=== PATIENT | female | born 1935 | race Caucasian/White ===

== ENCOUNTER 2018-03-16 10:00 | Emergency (ER) | payer MEDICARE, BC ==
--- NOTE | 2018-03-16 10:27 | UC ---
Skin Complaint HPI - HPI Summary HPI Summary: This is ginny Young Zhou documenting for attending Odell Kelley MD. This patient is a 82 year old F presenting to [facility] with a chief complaint of a facial rash that began yesterday. [facility]18 she felt like something was in her eye, this is when the sx began. She reports eye discharge and swelling. She is concerned this is shingles. She did have chicken pox as a child. The patient rates the pain 8/10 in severity. - History of Current Complaint Chief Complaint: UCRash Time Seen by Provider: 03/16/18 10:19 Stated Complaint: RASH Hx Obtained From: Patient Onset/Duration: Lasting Days, Still Present Timing: Constant Onset Severity: Severe Current Severity: Severe Pain Intensity: 8 Pain Scale Used: 0-10 Numeric Location: Face Character: Pain, Redness Associated Signs & Symptoms: Positive: Negative - fever - Allergy/Home Medications Allergies/Adverse Reactions: Allergies Allergy/AdvReac Type Severity Reaction Status Date / Time amlodipine [From [facility]] Allergy Hives Verified 03/16/18 10:23 Penicillins Allergy Hives Verified 03/16/18 10:22 Home Medications: Home Medications Aspirin [Aspirin Childrens 81 MG] 162 mg PO DAILY 03/16/18 [History Confirmed ] Atenolol TAB* [Tenormin TAB* 50 MG] 50 mg PO DAILY 03/16/18 [History Confirmed 03/16/18] Hydrochlorothiazide TAB* [Hydrodiuril TAB*] 50 mg PO DAILY 03/16/18 [History Confirmed 03/16/18] diphenhydrAMINE HCl [Benadryl Allergy 25 MG CAP] 25 mg PO DAILY PRN 03/16/18 [ History Confirmed 03/16/18] Review of Systems Constitutional: Negative - fever Skin: Rash Eyes: Drainage - and swelling All Other Systems Reviewed And Are Negative: Yes PMH/Surg Hx/FS Hx/Imm Hx Cardiovascular History: Hypertension Other History Of: Negative For: Anticoagulant Therapy - Surgical History Surgical History: None - Family History Known Family History: Positive: Hypertension - Social History Alcohol Use: None Substance Use Type: None Smoking Status (MU): Never Smoked Tobacco Physical Exam - Summary Physical Exam Summary: General: well-appearing, no pain distress Skin: There are erythematous papules, no vesicle, on the left side on the forehead surround left eye, there is a sclera injection Head: normal Eyes: EOMI, GUILLE ENT: normal Neck: supple, nontender Respiratory: CTA, breath sounds present Cardiovascular: RRR Abdomen: soft, nontender Bowel: present Musculoskeletal: normal, strength/ROM intact Neurological: sensory/motor intact, A&O x3 Psychological: affect/mood appropriate Triage Information Reviewed: Yes Vital Signs: Initial Vital Signs Temp 98 F 03/16/18 10:20 Pulse 62 03/16/18 10:20 Resp 16 03/16/18 10:20 BP 189/89 03/16/18 10:20 Pulse Ox 99 03/16/18 10:20 Vital Signs Reviewed: Yes Course/Dx - Course Course Of Treatment: BP noted and advised to follow up with PCP. RX VALACYCLOVIR. ARRANGED AN OPHTHALMOLOGY APPOINT FOR THE PATIENT TODAY AT 4:30PM , [place]ARRO[place] [facility] [place] - Diagnoses Provider Diagnoses: FACIAL SHINGLES. HTN - Physician Notification/Consults Discussed Patient Care With: Chris Santacruz Time Discussed With Above Provider: 10:34 Instructed by Provider To: Other - Dr. Santacruz states that he will see the patient at 16:[address] Carroll will be the one seeing the patient. Discharge - Sign-Out/Discharge Documenting (check all that apply): Patient Departure - Discharge Plan Condition: Stable Disposition: HOME Prescriptions: Valacyclovir HCl [Valacyclovir] 1 gm PO TID #21 tab Patient Education Materials: Shingles (ED) Referrals: [facility] [place] [facility] REFERRAL [Outside] Chris Santacruz MD [Medical Doctor] - Additional Instructions: FOLLOW UP WITH OPHTHALMOLOGY, DR CARROLL, IN DR SANTACRUZ'S OFFICE AT 4:30PM TODAY. FOLLOW UP WITH YOUR PRIMARY CARE DOCTOR. GET RECHECKED FOR ANY WORSENING OF YOUR CONDITION OR QUESTIONS OR CONCERNS. Your blood pressure was elevated during todays visit; please follow up with your primary care provider within a week for further evaluation - Billing Disposition and Condition Condition: STABLE Disposition: Home Attestation Statement Scribe Attestation: This is ginny Zhou documenting for attending Odell Kelley MD. User Type: Provider with Scribe Provider Attestation: The documentation recorded by the scribe accurately reflects the service I personally performed and the decisions made by me.
== END 2018-03-16 10:53 | disposition home or self-care (01) ==
LOC: UCEAST 10:00
DX: B02.9 Zoster without complications (principal); I10 Essential (primary) hypertension; Z88.0 Allergy status to penicillin; Z88.8 Allergy status to other drugs, medicaments and biological substances
CPT/HCPCS: 99202; G0463